=== PATIENT | female | born 1970 | race Two or more races ===

== ENCOUNTER 2021-01-21 09:40 | Outpatient (CLI) | payer OTHER | END 2021-01-21 09:44 | disposition home or self-care (01) | LOC: PPH VACUNA 09:40 | PROVIDERS: ATTEND Emergency Medicine Pediatric Emergency Medicine | DX: Z23 Encounter for immunization (principal) ==

== ENCOUNTER 2021-12-24 13:11 | Outpatient (CLI) | payer OTHER | END 2021-12-24 13:16 | disposition home or self-care (01) | LOC: PPH VACUNA 13:11 | PROVIDERS: ATTEND Emergency Medicine Pediatric Emergency Medicine | DX: Z23 Encounter for immunization (principal) ==